=== PATIENT | male | born 1955 | race Caucasian/White ===

== ENCOUNTER 2017-04-12 09:53 | Observation (INO) | payer BC ==
[2017-04-12] MEDS ORDERED: Sodium Chloride 0.9% 10 ML Syringe FLUSH PRN (10:04)
[2017-04-12] MEDS ORDERED: Sodium Chloride 0.9% 1,000 ML IV ONE (10:04)
[2017-04-12] MEDS ORDERED: Diltiazem 25 MG/5 ML SDV IVPUSH ONE ×2 (10:10→10:25)
[2017-04-12] MEDS ORDERED: Diltiazem 25 MG/5 ML SDV ONE (10:12)
--- NOTE | 2017-04-12 10:39 | EDM.PDOC ---
ED HPI GENERAL MEDICAL PROBLEM - General Chief Complaint: Syncope Stated Complaint: SYNCOPE Time Seen by Provider: 04/12/17 10:03 Source of Information: Reports: Patient History Limitations: Reports: No Limitations - History of Present Illness INITIAL COMMENTS - FREE TEXT/NARRATIVE: The patient is a 61-year-old male with a chief complaint of lightheadedness. The patient states that while he was driving yesterday he had a period where he felt lightheaded and pulled over. He ate something and his symptoms resolved. Today since early this morning he's been feeling very lightheaded. Feels like he might pass out. He has not passed out. Denies headache. No chest pain. Mild shortness of breath. No cough. Denies recent illness. No abdominal pain, vomiting, diarrhea. No lower extremity pain or swelling. No additional complaint other than this feeling of lightheadedness. There was no clear provoking factor. He's never had symptoms like this before. - Related Data Allergies Allergy/AdvReac Type Severity Reaction Status Date / Time No Known Allergies Allergy Verified 04/12/17 10:23 Home Meds: Home Meds Levothyroxine Sodium [Levothyroxine Sodium] 112 mg PO DAILY 04/12/17 [History] ED ROS GENERAL - Review of Systems Review Of Systems: See Below Constitutional: Reports: Weakness, Fatigue HEENT: Reports: No Symptoms Respiratory: Reports: Shortness of Breath. Denies: Cough Cardiovascular: Reports: Lightheadedness. Denies: Chest Pain Endocrine: Reports: No Symptoms GI/Abdominal: Denies: Abdominal Pain, Nausea, Vomiting : Reports: No Symptoms Musculoskeletal: Reports: No Symptoms. Denies: Leg Pain Skin: Reports: No Symptoms Neurological: Reports: No Symptoms Psychiatric: Reports: No Symptoms ED EXAM, GENERAL - Physical Exam Exam: See Below Exam Limited By: No Limitations General Appearance: Alert, WD/WN, No Apparent Distress Eye Exam: Bilateral Eye: Normal Inspection Ears: Normal External Exam Nose: Normal Inspection Throat/Mouth: Normal Inspection, Normal Voice, No Airway Compromise Head: Atraumatic, Normocephalic Neck: Normal Inspection, Supple, Non-Tender, Full Range of Motion Respiratory/Chest: No Respiratory Distress, Lungs Clear, Normal Breath Sounds, No Accessory Muscle Use Cardiovascular: No Murmur, Tachycardia, Irregularly Irregular. No: No Edema GI/Abdominal: Soft, Non-Tender, No Distention. No: Rebound Back Exam: Normal Inspection Extremities: Normal Inspection, No Pedal Edema. No: Leg Pain Neurological: Alert, Oriented, Normal Cognition, No Motor/Sensory Deficits Psychiatric: Normal Affect, Normal Mood Skin Exam: Warm, Dry, Intact, Normal Color, No Rash Course - Vital Signs Last Recorded V/S: Last Vital Signs Temp Pulse 79 04/12/17 13:00 Resp 16 04/12/17 13:00 BP 127/97 H 04/12/17 13:00 Pulse Ox 99 04/12/17 15:31 - Orders/Labs/Meds Orders: Active Orders 24 hr Category Date Time Status Peripheral IV Care [RC] . DIRECTED Care 04/12/17 10:04 Active Diltiazem 125 mg Med 04/12/17 11:05 Active Dextrose 5% in Water 100 ml IV TITRATE Sodium Chloride 0.9% [Saline Flush] Med 04/12/17 10:04 Active 10 ml FLUSH ASDIRECTED PRN Peripheral IV Insertion Adult [OM.PC] Routine Oth 04/12/17 10:04 Ordered Medication Orders Acetaminophen (Tylenol) 650 mg PO Q4H PRN PRN Reason: Pain (Mild 1-3)/fever Hydrocodone Bitart/Acetaminophen (Sidman 325-5 Mg) 1 tab PO Q4H PRN PRN Reason: Pain (moderate 4-6) Albuterol/Ipratropium (Duoneb 3.0-0.5 Mg/3 Ml) 3 ml NEB Q4H PRN PRN Reason: Shortness Of Breath/wheezing Bisacodyl (Dulcolax) 5 mg PO DAILY PRN PRN Reason: Constipation Docusate Sodium (Colace) 100 mg PO BID PRN PRN Reason: Constipation Hydromorphone HCl (Dilaudid) 0.25 mg IVPUSH Q2H PRN PRN Reason: Pain (severe 7-10) Diltiazem HCl 125 mg/ Dextrose (/Water) 125 mls @ 5 mls/hr IV TITRATE ANURADHA; 5 MG /HR PRN Reason: Protocol Promethazine HCl 12.5 mg/ (Sodium Chloride) 50.5 mls @ 100 mls/hr IV Q6H PRN PRN Reason: Nausea/Vomiting Levothyroxine Sodium (Levothyroxine) 112 mcg PO DAILY@0700 ANURADHA Lorazepam (Ativan) 1 mg IV Q6H PRN PRN Reason: Anxiety Ondansetron HCl (Zofran) 4 mg IV Q6H PRN PRN Reason: Nausea/Vomiting Polyethylene Glycol (Miralax) 17 gm PO DAILY PRN PRN Reason: Constipation Senna/Docusate Sodium (Senna Plus) 1 tab PO BID PRN PRN Reason: Constipation Sodium Chloride (Saline Flush) 10 ml FLUSH ASDIRECTED PRN PRN Reason: Keep Vein Open Last Admin: 04/12/17 10:34 Dose: 10 ml Temazepam (Restoril) 15 mg PO BEDTIME PRN PRN Reason: Sleep Labs: Laboratory Tests 04/12/17 04/12/17 04/12/17 Range/Units 10:20 10:20 10:20 WBC 13.82 H (4.23-9.07) K/mm3 RBC 5.07 (4.63-6.08) M/mm3 Hgb 16.1 (13.7-17.5) gm/L Hct 47.1 (40.1-51.0) % MCV 92.9 H (79.0-92.2) fl MCH 31.8 (25.7-32.2) pg MCHC 34.2 (32.2-35.5) g/dl RDW Std Deviation 45.0 H (35.1-43.9) fL Plt Count 145 L (163-337) K/mm3 MPV 11.1 (9.4-12.3) fl Neut % (Auto) 76.8 H (34.0-67.9) % Lymph % (Auto) 12.2 L (21.8-53.1) % Avery % (Auto) 9.8 (5.3-12.2) % Eos % (Auto) 0.5 L (0.8-7.0) Baso % (Auto) 0.5 (0.1-1.2) % Neut # (Auto) 10.61 H (1.78-5.38) K/mm3 Lymph # (Auto) 1.68 (1.32-3.57) K/mm3 Avery # (Auto) 1.36 H (0.30-0.82) K/mm3 Eos # (Auto) 0.07 (0.04-0.54) K/mm3 Baso # (Auto) 0.07 (0.01-0.08) K/mm3 Sodium 139 (136-145) mEq/L Potassium 3.6 (3.5-5.1) mEq/L Chloride 106 (98-107) mEq/L Carbon Dioxide 22 (21-32) mEq/L Anion Gap 14.6 (5-15) BUN 12 (7-18) mg/dL Creatinine 1.3 (0.7-1.3) mg/dL Est Cr Clr Drug Dosing 59.19 mL/min Estimated GFR (MDRD) 57 (>60) mL/min BUN/Creatinine Ratio 9.2 L (14-18) Glucose 123 H (74-106) mg/dL Calcium 8.8 (8.5-10.1) mg/dL Magnesium 1.7 L (1.8-2.4) mg/dl Total Bilirubin 1.1 H (0.2-1.0) mg/dL AST 18 (15-37) U/L ALT 27 (16-63) U/L Alkaline Phosphatase 61 (46-116) U/L Troponin I < 0.017 (0.00-0.056) ng/mL B-Natriuretic Peptide 52 (0-100) pg/mL Total Protein 7.0 (6.4-8.2) g/dl Albumin 3.9 (3.4-5.0) g/dl Globulin 3.1 gm/dL Albumin/Globulin Ratio 1.3 (1-2) Free T4 (0.76-1.46) ng/dL TSH 3rd Generation (0.358-3.74) uIU/mL Urine Color (Yellow) Urine Appearance (Clear) Urine pH (5.0-8.0) Ur Specific Richardson (1.005-1.030) Urine Protein (Negative) Urine Glucose (UA) (Negative) Urine Ketones (Negative) Urine Occult Blood (Negative) Urine Nitrite (Negative) Urine Bilirubin (Negative) Urine Urobilinogen (0.2-1.0) Ur Leukocyte Esterase (Negative) Urine RBC (0-5) /hpf Urine WBC (0-5) /hpf Ur Epithelial Cells (0-5) /hpf Urine Bacteria (FEW) /hpf Urine Mucus (FEW) /hpf 04/12/17 04/12/17 Range/Units 10:20 11:07 WBC (4.23-9.07) K/mm3 RBC (4.63-6.08) M/mm3 Hgb (13.7-17.5) gm/L Hct (40.1-51.0) % MCV (79.0-92.2) fl MCH (25.7-32.2) pg MCHC (32.2-35.5) g/dl RDW Std Deviation (35.1-43.9) fL Plt Count (163-337) K/mm3 MPV (9.4-12.3) fl Neut % (Auto) (34.0-67.9) % Lymph % (Auto) (21.8-53.1) % Avery % (Auto) (5.3-12.2) % Eos % (Auto) (0.8-7.0) Baso % (Auto) (0.1-1.2) % Neut # (Auto) (1.78-5.38) K/mm3 Lymph # (Auto) (1.32-3.57) K/mm3 Avery # (Auto) (0.30-0.82) K/mm3 Eos # (Auto) (0.04-0.54) K/mm3 Baso # (Auto) (0.01-0.08) K/mm3 Sodium (136-145) mEq/L Potassium (3.5-5.1) mEq/L Chloride (98-107) mEq/L Carbon Dioxide (21-32) mEq/L Anion Gap (5-15) BUN (7-18) mg/dL Creatinine (0.7-1.3) mg/dL Est Cr Clr Drug Dosing mL/min Estimated GFR (MDRD) (>60) mL/min BUN/Creatinine Ratio (14-18) Glucose (74-106) mg/dL Calcium (8.5-10.1) mg/dL Magnesium (1.8-2.4) mg/dl Total Bilirubin (0.2-1.0) mg/dL AST (15-37) U/L ALT (16-63) U/L Alkaline Phosphatase (46-116) U/L Troponin I (0.00-0.056) ng/mL B-Natriuretic Peptide (0-100) pg/mL Total Protein (6.4-8.2) g/dl Albumin (3.4-5.0) g/dl Globulin gm/dL Albumin/Globulin Ratio (1-2) Free T4 1.40 (0.76-1.46) ng/dL TSH 3rd Generation 0.511 (0.358-3.74) uIU/mL Urine Color Yellow (Yellow) Urine Appearance Clear (Clear) Urine pH 7.0 (5.0-8.0) Ur Specific Richardson 1.015 (1.005-1.030) Urine Protein Negative (Negative) Urine Glucose (UA) Negative (Negative) Urine Ketones Negative (Negative) Urine Occult Blood Negative (Negative) Urine Nitrite Negative (Negative) Urine Bilirubin Negative (Negative) Urine Urobilinogen 0.2 (0.2-1.0) Ur Leukocyte Esterase Negative (Negative) Urine RBC Not seen (0-5) /hpf Urine WBC 0-5 (0-5) /hpf Ur Epithelial Cells Not seen (0-5) /hpf Urine Bacteria Not seen (FEW) /hpf Urine Mucus Not seen (FEW) /hpf Meds: Medications Generic Name Dose Route Start Last Admin Trade Name Freq PRN Reason Stop Dose Admin Acetaminophen 650 mg 04/12/17 13:49 Tylenol PO Q4H PRN Pain (Mild 1-3)/fever Hydrocodone Bitart/Acetaminophen 1 tab 04/12/17 13:49 Sidman 325-5 Mg PO Q4H PRN Pain (moderate 4-6) Albuterol/Ipratropium 3 ml 04/12/17 13:49 Duoneb 3.0-0.5 Mg/3 Ml NEB Q4H PRN Shortness Of Breath/wheezing Bisacodyl 5 mg 04/12/17 13:49 Dulcolax PO DAILY PRN Constipation Docusate Sodium 100 mg 04/12/17 13:49 Colace PO BID PRN Constipation Hydromorphone HCl 0.25 mg 04/12/17 13:49 Dilaudid IVPUSH Q2H PRN Pain (severe 7-10) Diltiazem HCl 125 mg/ Dextrose 125 mls @ 5 mls/hr 04/12/17 11:05 /Water IV TITRATE ANURADHA Protocol 5 MG/HR Promethazine HCl 12.5 mg/ 50.5 mls @ 100 mls/hr 04/12/17 13:49 Sodium Chloride IV Q6H PRN Nausea/Vomiting Levothyroxine Sodium 112 mcg 04/13/17 07:00 Levothyroxine PO DAILY@0700 ANURADHA Lorazepam 1 mg 04/12/17 13:49 Ativan IV Q6H PRN Anxiety Ondansetron HCl 4 mg 04/12/17 13:49 Zofran IV Q6H PRN Nausea/Vomiting Polyethylene Glycol 17 gm 04/12/17 13:49 Miralax PO DAILY PRN Constipation Senna/Docusate Sodium 1 tab 04/12/17 13:49 Senna Plus PO BID PRN Constipation Sodium Chloride 10 ml 04/12/17 10:04 04/12/17 10:34 Saline Flush FLUSH 10 ml ASDIRECTED PRN Administration Keep Vein Open Temazepam 15 mg 04/12/17 13:49 Restoril PO BEDTIME PRN Sleep Discontinued Medications Generic Name Dose Route Start Last Admin Trade Name Freq PRN Reason Stop Dose Admin Diltiazem HCl Confirm 04/12/17 10:12 04/12/17 10:25 Diltiazem Administered 04/12/17 10:13 Not Given Dose 25 mg .ROUTE .STK-MED ONE Diltiazem HCl 10 mg 04/12/17 10:10 04/12/17 10:15 Diltiazem IVPUSH 04/12/17 10:11 10 mg ONETIME ONE Administration Diltiazem HCl 10 mg 04/12/17 10:25 04/12/17 10:27 Diltiazem IVPUSH 04/12/17 10:26 10 mg ONETIME ONE Administration Sodium Chloride 1,000 mls @ 1,000 mls/hr 04/12/17 10:04 04/12/17 10:13 Normal Saline IV 04/12/17 11:03 1,000 mls/hr ONETIME ONE Administration Magnesium Sulfate/Dextrose 1 100 mls @ 100 mls/hr 04/12/17 10:52 04/12/17 11: 40 gm/ Premix IV 04/12/17 11:51 100 mls/hr ONETIME ONE Administration Diltiazem HCl 125 mg/ Sodium 125 mls @ 5 mls/hr 04/12/17 11:00 Chloride IV TITRATE ANURADHA Protocol 5 MG/HR Potassium Chloride 20 meq 04/12/17 11:30 04/12/17 11:35 Potassium Chloride Solution PO 04/12/17 11:31 20 meq ONETIME ONE Administration - Re-Assessments/Exams Free Text/Narrative Re-Assessment/Exam: 04/12/17 11:33 When patient first arrived, his heart rate was very fast, in the 160s and irregular. His EKG showed atrial fibrillation with rapid ventricular response. There is no evidence of acute ischemia. The patient was given IV diltiazem 10 mg with no response. He was given an additional 10 mg of diltiazem. About half an hour later, he converted to normal sinus rhythm. Since then he's had sinus rhythm with a rate in the 60s. EKG shows normal sinus rhythm with no evidence of acute ischemia or arrhythmia. His blood pressures have been on the low side but okay. He is getting some IV fluids now. This is apparently a new diagnosis. He states that he does have a family member, his father who has A. fib. No provoking factor. His magnesium is mildly low. This is being replaced. His potassium is also only 3.6, so we'll give him 20 mEq by mouth. Message left for Dr. Smith at 11:37. Discussed with Dr. Smith at 12:00, he accepts patient for admission. 04/12/17 15:46 Departure - Departure Time of Disposition: 12:00 Disposition: Admitted As Inpatient 68 Clinical Impression: Atrial fibrillation with rapid ventricular response Critical Care Note - Critical Care Note Total Time (mins): 30 - My Orders Last 24 Hours: My Active Orders 04/12/17 10:04 Peripheral IV Care [RC] . DIRECTED Sodium Chloride 0.9% [Saline Flush] 10 ml FLUSH ASDIRECTED PRN Peripheral IV Insertion Adult [OM.PC] Routine 04/12/17 11:05 Diltiazem 125 mg Dextrose 5% in Water 100 ml IV TITRATE - Assessment/Plan Last 24 Hours: My Active Orders 04/12/17 10:04 Peripheral IV Care [RC] . DIRECTED Sodium Chloride 0.9% [Saline Flush] 10 ml FLUSH ASDIRECTED PRN Peripheral IV Insertion Adult [OM.PC] Routine 04/12/17 11:05 Diltiazem 125 mg Dextrose 5% in Water 100 ml IV TITRATE
[2017-04-12] MEDS ORDERED: Diltiazem 125 MG in Sodium Chloride 0.9% 100 ML IV SCH (11:00)
[2017-04-12] MEDS ORDERED: Potassium Chloride 10% 20 MEQ/15 ML Soln 30 ML UD Cup PO ONE (11:12)
--- NOTE | 2017-04-12 11:20 | CR ---
Chest: Frontal view of the chest is obtained. Comparison: No previous study. Small nodule is noted within the right upper chest. Uncertain if this is calcified or not. Chest CT will be recommended to further evaluate. Lungs shows minimal density within both bases presumably due to atelectasis or slight scarring. Lungs otherwise are clear. Heart size and mediastinum are normal. Bony structures are unremarkable. Impression: 1. Nodule within the right upper chest. Noncontrast chest CT is recommended to further evaluate. 2. Mild atelectasis or scarring within both lung bases. Nothing acute is otherwise seen. Diagnostic code #9
[2017-04-12] MEDS ORDERED: Potassium Chloride 10% 20 MEQ/15 ML Soln 15 ML UD Cup PO ONE (11:30)
--- NOTE | 2017-04-12 13:32 | PCM.HP ---
<Margret Ty - Last Filed: 04/12/17 14:27> H&P History of Present Illness - General Date of Service: 04/12/17 Admit Problem/Dx: Admission Diagnosis/Problem Admission Diagnosis/Problem Atrial fibrillation Source of Information: Patient, Provider, RN Notes Reviewed History Limitations: Reports: No Limitations - History of Present Illness Initial Comments - Free Text/Narative: 61 year old white male with history of hypothyroidism, TB-latent diagnosed in 1980, and Stevens's palsy who presented to ED with c/o lightheadedness, fatigue, and syncope. Symptoms began yesterday while driving, he pulled over and had a snack and the symptoms resolved. He had minor lightheadedness this morning in the shower that resolved, then reoccured this afternoon as he neared [facility]. He is travelling from his home in [place], [place] to [place], [place] to visit family and decided to seek medical care. Initial workup in ER revealed Atrial fibrillation with RVR in 160s, hypomagnesmia. WBC elevated at 13.82, Troponin was negative, chest xray with mild atelectasis/scarring to bilateral bases and nodule to right upper chest correlated by non-contrast CT scan as a granuloma. Pt being admitted for observation with telemetry and work-up of syncope. Onset of Symptoms: Reports: Sudden Duration of Symptoms: Reports: Intermittent Associated Symptoms: Reports: Shortness of Breath - Related Data Allergies/Adverse Reactions: Allergies Allergy/AdvReac Type Severity Reaction Status Date / Time No Known Allergies Allergy Verified 04/12/17 10:23 Home Medications: Home Meds Levothyroxine Sodium [Levothyroxine Sodium] 112 mg PO DAILY 04/12/17 [History] Past Medical History HEENT History: Reports: Impaired Vision Cardiovascular History: Reports: High Cholesterol (not on medication-diet controlled) Respiratory History: Reports: TB (latent-diagnosed in 1980) Other Respiratory History: TB in Gastrointestinal History: Reports: GERD (now resolved with weight loss) Genitourinary History: Reports: Renal Calculus Other Neuro History: Stevens's Palsy Endocrine/Metabolic History: Reports: Hypothyroidism - Past Surgical History GI Surgical History: Reports: Appendectomy Social & Family History - Family History Family Medical History: Noncontributory - Tobacco Use Smoking Status *Q: Current Every Day Smoker Years of Tobacco use: 40 Packs/Tins Daily: 0.2 Tobacco Use Comment: Hx of heavy smoking 1-2 ppd at times - Caffeine Use Caffeine Use: Reports: Soda (1 can of soda/day) Other Caffeine Use: daily - Recreational Drug Use Recreational Drug Use: Yes Drug Use in Last 12 Months: Yes Recreational Drug Type: Reports: Marijuana/Hashish (medicinal use-Stevens's palsy) Other Recreational Drug Type: Used last night - has medical license in [place] H&P Review of Systems - Review of Systems: Review Of Systems: See Below General: Reports: No Symptoms HEENT: Reports: No Symptoms Pulmonary: Reports: No Symptoms. Denies: Shortness of Breath, Cough Cardiovascular: Reports: No Symptoms. Denies: Chest Pain, Palpitations, Syncope Gastrointestinal: Reports: No Symptoms Genitourinary: Reports: No Symptoms. Denies: Dysuria, Flank Pain Musculoskeletal: Reports: No Symptoms Skin: Reports: No Symptoms Psychiatric: Reports: No Symptoms Neurological: Reports: No Symptoms. Denies: Dizziness, Weakness Hematologic/Lymphatic: Reports: No Symptoms Immunologic: Reports: No Symptoms Exam - Exam Exam: See Below - Vital Signs Vital Signs: Last Vital Signs Temp Pulse 79 04/12/17 13:00 Resp 16 04/12/17 13:00 BP 127/97 H 04/12/17 13:00 Pulse Ox 98 04/12/17 13:00 Weight: 81.647 kg - Exam Quality Assessment: DVT Prophylaxis General: Alert, Oriented, 4 HEENT: Conjunctiva Clear, EOMI, Hearing Intact, Mucosa Moist & [place], PERRLA Neck: Supple, Trachea Midline. No: JVD, Thyromegaly Lungs: Clear to Auscultation, Normal Respiratory Effort Cardiovascular: Regular Rate, Regular Rhythm. No: Irregular Rhythm Abdomen: Normal Bowel Sounds, Soft (Male) Exam: Deferred Rectal (Males) Exam: Deferred Back Exam: Normal Inspection, Full Range of Motion, NT Extremities: 3, Normal Inspection, 10 Peripheral Pulses: 2+: Radial (L), Radial (R), Dorsalis Pedis (L), Dorsalis Pedis (R) Skin: Warm, Dry, Intact Neurological: Cranial Nerves Intact, Reflexes Equal Bilateral Neuro Extensive - Mental Status: Alert, Oriented x3, Normal Mood/Affect, Normal Cognition Neuro Extensive - Motor, Sensory, Reflexes: CN II-XII Intact, Normal Gait, Normal Reflexes Psychiatric: Alert, Normal Affect, Normal Mood - Patient Data Result Diagrams: 04/12/17 10:20 04/12/17 10:20 EKG INTERPRETATION Comparison: NA - No Prior EKG *Q Meaningful Use (ADM) - VTE *Q VTE Criteria *Q: - Stroke *Q Stroke Criteria *Q: - AMI *Q AMI Criteria *Q: Problem List Initiated/Reviewed/Updated: Yes Orders Last 24hrs: Active Orders 24 hr Category Date Time Status Code Status [Resuscitation Status] Routine Resus Stat 04/12/17 13:23 Ordered Medication Orders Diltiazem HCl 125 mg/ Dextrose (/Water) 125 mls @ 5 mls/hr IV TITRATE ANURADHA; 5 MG /HR PRN Reason: Protocol Sodium Chloride (Saline Flush) 10 ml FLUSH ASDIRECTED PRN PRN Reason: Keep Vein Open Last Admin: 04/12/17 10:34 Dose: 10 ml Assessment/Plan Comment:: Assessment/Plan: Acute: New onset of atrial fib w/ RVR - Paroxysmal - Risk factors: thyroid problems on medications, nicotine, caffeine - Received low dose Cardizem in ED (10mg IV x 2 doses) - Spontaneously/chemically converted to sinus rhythm - Will check for thyroid panel since he is on thyroid replacement medication Syncope - X1 only - likely secondary to cardiac related to atrial fib - 2D echo to asses cardiac function hypomagnesemia - likely 2/2 inadequate intake - received 1 gram of mag sulfate IV in ED - Will montor X-ray Finding - RU chest nodule/granuloma - history of latent TB - Defer outpatient for any other work up chronic: Hypothyroidism - on levothyroxine - will check thyroid panel Plan: admit OBV w/telemetry activity as tolerated SW/CM for d/c planning <Tawanna Smith T - Last Filed: 04/12/17 17:04> H&P History of Present Illness - General Admit Problem/Dx: Admission Diagnosis/Problem Admission Diagnosis/Problem Atrial fibrillation Exam - Vital Signs Vital Signs: Last Vital Signs Temp Pulse 79 04/12/17 13:00 Resp 16 04/12/17 13:00 BP 127/97 H 04/12/17 13:00 Pulse Ox 99 04/12/17 15:31 - Patient Data Result Diagrams: 04/12/17 10:20 04/12/17 10:20 *Q Meaningful Use (ADM) - VTE *Q VTE Criteria *Q: - Stroke *Q Stroke Criteria *Q: - AMI *Q AMI Criteria *Q: Problem List Initiated/Reviewed/Updated: Yes Orders Last 24hrs: Active Orders 24 hr Category Date Time Status Antiembolic Devices [RC] PER UNIT ROUTINE Care 04/12/17 13:51 Active Cardiac Monitoring [RC] CONTINUOUS Care 04/12/17 13:49 Active EKG Documentation Completion [RC] AM Care 04/13/17 07:00 Active Intake and Output [RC] QSHIFT Care 04/12/17 13:49 Active Oxygen Therapy [RC] PRN Care 04/12/17 13:49 Active RT Aerosol Therapy [RC] .PRN Care 04/12/17 13:51 Active Up ad Mary Carmen [RC] ASDIRECTED Care 04/12/17 13:49 Active VTE/DVT Education [RC] PER UNIT ROUTINE Care 04/12/17 13:49 Active Vital Signs [RC] Q4H Care 04/12/17 13:49 Active Consult to Case Management [CONS] Routine Cons 04/12/17 13:49 Active Consult to Manager Cardiac Cath [CONS] Routine Cons 04/12/17 13:49 Active Regular Diet [DIET] Diet 04/12/17 Breakfast Active BASIC METABOLIC PANEL,BMP [CHEM] AM Lab 04/13/17 05:11 Ordered CBC WITH AUTO DIFF [HEME] AM Lab 04/13/17 05:11 Ordered MAGNESIUM [CHEM] AM Lab 04/13/17 05:11 Ordered Acetaminophen [Tylenol] Med 04/12/17 13:49 Active 650 mg PO Q4H PRN Acetaminophen/HYDROcodone [Steele 325-5 MG] Med 04/12/17 13:49 Active 1 tab PO Q4H PRN Albuterol/Ipratropium [DuoNeb 3.0-0.5 MG/3 ML] Med 04/12/17 13:49 Active 3 ml NEB Q4H PRN Bisacodyl [Dulcolax] Med 04/12/17 13:49 Active 5 mg PO DAILY PRN Docusate Sodium [Colace] Med 04/12/17 13:49 Active 100 mg PO BID PRN Docusate Sodium/Sennosides [Senna Plus] Med 04/12/17 13:49 Active 1 tab PO BID PRN HYDROmorphone [Dilaudid] Med 04/12/17 13:49 Active 0.25 mg IVPUSH Q2H PRN LORazepam [Ativan] Med 04/12/17 13:49 Active 1 mg IV Q6H PRN Levothyroxine Med 04/13/17 07:00 Active 112 mcg PO DAILY@0700 Ondansetron [Zofran] Med 04/12/17 13:49 Active 4 mg IV Q6H PRN Polyethylene Glycol 3350 [MiraLAX] Med 04/12/17 13:49 Active 17 gm PO DAILY PRN Promethazine [Phenergan] 12.5 mg Med 04/12/17 13:49 Active Sodium Chloride 0.9% [Normal Saline] 50 ml IV Q6H Temazepam [Restoril] Med 04/12/17 13:49 Active 15 mg PO BEDTIME PRN Sequential Compression Device [OM.PC] Per Unit Routine Oth 04/12/17 13:50 Ordered Code Status [Resuscitation Status] Routine Resus Stat 04/12/17 13:23 Ordered Medication Orders Acetaminophen (Tylenol) 650 mg PO Q4H PRN PRN Reason: Pain (Mild 1-3)/fever Hydrocodone Bitart/Acetaminophen (Steele 325-5 Mg) 1 tab PO Q4H PRN PRN Reason: Pain (moderate 4-6) Albuterol/Ipratropium (Duoneb 3.0-0.5 Mg/3 Ml) 3 ml NEB Q4H PRN PRN Reason: Shortness Of Breath/wheezing Bisacodyl (Dulcolax) 5 mg PO DAILY PRN PRN Reason: Constipation Docusate Sodium (Colace) 100 mg PO BID PRN PRN Reason: Constipation Hydromorphone HCl (Dilaudid) 0.25 mg IVPUSH Q2H PRN PRN Reason: Pain (severe 7-10) Diltiazem HCl 125 mg/ Dextrose (/Water) 125 mls @ 5 mls/hr IV TITRATE ANURADHA; 5 MG /HR PRN Reason: Protocol Promethazine HCl 12.5 mg/ (Sodium Chloride) 50.5 mls @ 100 mls/hr IV Q6H PRN PRN Reason: Nausea/Vomiting Levothyroxine Sodium (Levothyroxine) 112 mcg PO DAILY@0700 ANURADHA Lorazepam (Ativan) 1 mg IV Q6H PRN PRN Reason: Anxiety Ondansetron HCl (Zofran) 4 mg IV Q6H PRN PRN Reason: Nausea/Vomiting Polyethylene Glycol (Miralax) 17 gm PO DAILY PRN PRN Reason: Constipation Senna/Docusate Sodium (Senna Plus) 1 tab PO BID PRN PRN Reason: Constipation Sodium Chloride (Saline Flush) 10 ml FLUSH ASDIRECTED PRN PRN Reason: Keep Vein Open Last Admin: 04/12/17 10:34 Dose: 10 ml Temazepam (Restoril) 15 mg PO BEDTIME PRN PRN Reason: Sleep Assessment/Plan Comment:: Patient seen and examined at bedside. Assessments and plan were discussed with me by the [employer] student and ORQUIDEA Quintanilla, Supervising Provider. Other Chronic Problems: Hx/o Stevens's Palsy Chronic Medical Marijuana Use
--- NOTE | 2017-04-12 13:35 | CT ---
CT chest Technique: Multiple axial sections were obtained from above the lung apices inferiorly through the lung bases. Intravenous contrast was not utilized. Comparison: Previous chest x-ray of 04/12/17. Findings: Nodule is identified within the right upper lung. This shows calcification as well as a small amount of adjacent scarring. This is felt compatible with incidental granuloma. Lungs otherwise are clear. Mild atherosclerotic calcification is noted within the thoracic aorta. Small normal-appearing lymph nodes are seen within the mediastinum. No adenopathy is identified. No pericardial thickening is seen. Small portions of the upper abdominal structures appears within normal limits. Bone window settings were reviewed which shows no acute abnormality. Impression: 1. Previous chest x-ray nodule correlates to a granuloma within the right upper lung. 2. Other incidental findings. Nothing acute is seen. Diagnostic code #2
[2017-04-12] MEDS ORDERED: Bisacodyl 5 MG Tab PO PRN (13:49)
[2017-04-12] MEDS ORDERED: Promethazine 12.5 MG in Sodium Chloride 0.9% 50 ML IV PRN (13:49)
[2017-04-12] MEDS ORDERED: Docusate Sodium 100 MG Cap PO PRN (13:49)
[2017-04-12] MEDS ORDERED: LORazepam 2 MG/ML MDV IV PRN (13:49)
[2017-04-12] MEDS ORDERED: Acetaminophen 325 MG Tab PO PRN (13:49)
[2017-04-12] MEDS ORDERED: Temazepam 15 MG Cap PO PRN (13:49)
[2017-04-12] MEDS ORDERED: HYDROmorphone 0.5 MG/0.5 ML Syringe IVPUSH PRN (13:49)
[2017-04-12] MEDS ORDERED: Acetaminophen/HYDROcodone 325-5 MG Tab PO PRN (13:49)
[2017-04-12] MEDS ORDERED: Ondansetron 4 MG/2 ML SDV IV PRN (13:49)
[2017-04-12] MEDS ORDERED: Polyethylene Glycol 3350 Powder 17 GM Packet PO PRN (13:49)
[2017-04-12] MEDS ORDERED: Albuterol/Ipratropium 3.0-0.5 MG/3 ML Neb Soln NEB PRN (13:49)
[2017-04-12] MEDS ORDERED: Famotidine 20 MG Tab PO PRN (21:05)
[2017-04-13] MEDS ORDERED: Levothyroxine 112 MCG Tab PO SCH (07:00)
[2017-04-13 08:48] VITALS: BP 120/81
--- NOTE | 2017-04-13 09:17 | PCM.DCSUM1 ---
Discharge Summary - Hospital Course Free Text/Narrative:: 61 year old white male with history of hypothyroidism, TB-latent diagnosed in 1980, and Stevens's palsy who presented to ED with c/o lightheadedness, fatigue, and syncope. Symptoms began yesterday while driving, he pulled over and had a snack and the symptoms resolved. He had minor lightheadedness this morning in the shower that resolved, then reoccured this afternoon as he neared [facility]. He is travelling from his home in [place], [place] to [place], [place] to visit family and decided to seek medical care. Initial workup in ER revealed Atrial fibrillation with RVR in 160s, hypomagnesmia. WBC elevated at 13.82, Troponin was negative, chest xray with mild atelectasis/scarring to bilateral bases and nodule to right upper chest correlated by non-contrast CT scan as a granuloma. Pt being admitted for observation with telemetry and work-up of syncope. He maintained SR overnight on telemetry, repeat EKG morning of discharge was with normal sinus rhythm, rate of 82bpm. He had echocardiogram obtained during his stay with final report of 60-65%, no valvular dysfunction or other concerns. This information/report was not available upon discharge but patient was insistent upon discharge. I did call him today (04/14/17) with the normal results of echocardiogram. He states he is feeling well, no palpitations or symptoms of racing heartbeats. He was discharged home with instructions to follow up/consult with Cardiology for paroxysmal atrial fibrillation. Recommend follow up with PCP within one week of discharge. Reports will be sent/faxed to his PCP Dr. Ashu Torres, phone [phone] at [facility] in [place], [place]; fax number was obtained from office and is [phone]. - Discharge Data Discharge Date: 04/13/17 (admit date 04/12/17) Discharge Disposition: Home, Self-Care 01 Condition: Good - Patient Summary/Data Operative Procedure(s) Performed: None Complications: None Consults: Consultations 04/12/17 13:49 Consult to Case Management [CONS] Routine Consult to Disulfurizer Tender [CONS] Routine Labs Pending at D/C: None Recommended Follow-up Testing/Procedures: Follow up with PCP within one week of discharge Recommend Cardiology consult for paroxysmal atrial fibrillation Planned Operative Procedure(s) after DC: None Hospital Course: As above - Patient Instructions Diet: Heart Healthy Diet Activity: As Tolerated Driving: May Drive Today Showering/Bathing: May Shower Notify Provider of: Fever, Increased Pain, Nausea and/or Vomiting (palpitations , shortness of breath, chest pain) - Discharge Plan Home Medications: Home Meds Levothyroxine Sodium 112 mcg PO DAILY 04/12/17 [History] Patient Handouts: Smoking Cessation, Tips for Success, [id number], Atrial Fibrillation, [id number] Forms: ED Department Discharge Referrals: PCP,Not In Area [Primary Care Provider] - - Discharge Summary/Plan Comment DC Time >30 min.: Yes (40 min) - General Info Date of Service: 04/13/17 Admission Dx/Problem (Free Text: Admission Diagnosis/Problem Admission Diagnosis/Problem Atrial fibrillation Doing well overnight; no further afib noted on tele overnight. Repeat EKG this morning with NSR. Functional Status: Reports: pain controlled, tolerating diet, ambulating, urinating - Review of Systems General: Reports: No Symptoms HEENT: Reports: no symptoms Pulmonary: Reports: no symptoms Cardiovascular: Reports: No Symptoms Gastrointestinal: Reports: No symptoms Genitourinary: Reports: no symptoms Musculoskeletal: Reports: no symptoms Skin: Reports: no symptoms Neurological: Reports: No Symptoms Psychiatric: Reports: no symptoms - Patient Data Vitals - Most Recent: Last Vital Signs Temp 98.2 F 04/13/17 08:39 Pulse 61 04/13/17 08:39 Resp 16 04/13/17 08:39 BP 120/81 04/13/17 08:39 Pulse Ox 97 04/13/17 08:39 Weight - Most Recent: 182 lb 9.6 oz I&O - Last 24 hours: Intake & Output 04/12/17 04/13/17 04/13/17 22:59 06:59 14:59 Intake Total 200 800 Output Total 600 Balance 200 200 Lab Results - Last 24 hrs: Laboratory Results - last 24 hr 04/13/17 04/13/17 Range/Units 05:49 05:49 WBC 7.08 (4.23-9.07) K/mm3 RBC 4.59 L (4.63-6.08) M/mm3 Hgb 14.7 (13.7-17.5) gm/L Hct 43.8 (40.1-51.0) % MCV 95.4 H (79.0-92.2) fl MCH 32.0 (25.7-32.2) pg MCHC 33.6 (32.2-35.5) g/dl RDW Std Deviation 47.2 H (35.1-43.9) fL Plt Count 126 L (163-337) K/mm3 MPV 10.9 (9.4-12.3) fl Neut % (Auto) 60.2 (34.0-67.9) % Lymph % (Auto) 25.8 (21.8-53.1) % [place] % (Auto) 10.3 (5.3-12.2) % Eos % (Auto) 2.8 (0.8-7.0) Baso % (Auto) 0.8 (0.1-1.2) % Neut # (Auto) 4.25 (1.78-5.38) K/mm3 Lymph # (Auto) 1.83 (1.32-3.57) K/mm3 [place] # (Auto) 0.73 (0.30-0.82) K/mm3 Eos # (Auto) 0.20 (0.04-0.54) K/mm3 Baso # (Auto) 0.06 (0.01-0.08) K/mm3 Sodium 140 (136-145) mEq/L Potassium 4.5 (3.5-5.1) mEq/L Chloride 107 (98-107) mEq/L Carbon Dioxide 26 (21-32) mEq/L Anion Gap 11.5 (5-15) BUN 11 (7-18) mg/dL Creatinine 1.2 (0.7-1.3) mg/dL Est Cr Clr Drug Dosing 64.13 mL/min Estimated GFR (MDRD) > 60 (>60) mL/min BUN/Creatinine Ratio 9.2 L (14-18) Glucose 99 (74-106) mg/dL Calcium 8.1 L (8.5-10.1) mg/dL Magnesium 2.0 (1.8-2.4) mg/dl Med Orders - Current: Current Medications Acetaminophen (Tylenol) 650 mg PO Q4H PRN PRN Reason: Pain (Mild 1-3)/fever Hydrocodone Bitart/Acetaminophen ([place] 325-5 Mg) 1 tab PO Q4H PRN PRN Reason: Pain (moderate 4-6) Albuterol/Ipratropium (Duoneb 3.0-0.5 Mg/3 Ml) 3 ml NEB Q4H PRN PRN Reason: Shortness Of Breath/wheezing Bisacodyl (Dulcolax) 5 mg PO DAILY PRN PRN Reason: Constipation Docusate Sodium (Colace) 100 mg PO BID PRN PRN Reason: Constipation Famotidine (Pepcid) 40 mg PO BID PRN PRN Reason: Heartburn Last Admin: 04/12/17 21:27 Dose: 40 mg Hydromorphone HCl (Dilaudid) 0.25 mg IVPUSH Q2H PRN PRN Reason: Pain (severe 7-10) Promethazine HCl 12.5 mg/ (Sodium Chloride) 50.5 mls @ 100 mls/hr IV Q6H PRN PRN Reason: Nausea/Vomiting Levothyroxine Sodium (Levothyroxine) 112 mcg PO DAILY@0700 ANURADHA Last Admin: 04/13/17 06:41 Dose: 112 mcg Lorazepam (Ativan) 1 mg IV Q6H PRN PRN Reason: Anxiety Last Admin: 04/12/17 21:28 Dose: 1 mg Ondansetron HCl (Zofran) 4 mg IV Q6H PRN PRN Reason: Nausea/Vomiting Polyethylene Glycol (Miralax) 17 gm PO DAILY PRN PRN Reason: Constipation Senna/Docusate Sodium (Senna Plus) 1 tab PO BID PRN PRN Reason: Constipation Sodium Chloride (Saline Flush) 10 ml FLUSH ASDIRECTED PRN PRN Reason: Keep Vein Open Last Admin: 04/12/17 10:34 Dose: 10 ml Temazepam (Restoril) 15 mg PO BEDTIME PRN PRN Reason: Sleep Discontinued Medications Diltiazem HCl (Diltiazem) Confirm Administered Dose 25 mg .ROUTE .STK-MED ONE Stop: 04/12/17 10:13 Last Admin: 04/12/17 10:25 Dose: Not Given Diltiazem HCl (Diltiazem) 10 mg IVPUSH ONETIME ONE Stop: 04/12/17 10:11 Last Admin: 04/12/17 10:15 Dose: 10 mg Diltiazem HCl (Diltiazem) 10 mg IVPUSH ONETIME ONE Stop: 04/12/17 10:26 Last Admin: 04/12/17 10:27 Dose: 10 mg Sodium Chloride (Normal Saline) 1,000 mls @ 1,000 mls/hr IV ONETIME ONE Stop: 04/12/17 11:03 Last Admin: 04/12/17 10:13 Dose: 1,000 mls/hr Magnesium Sulfate/Dextrose 1 (gm/ Premix) 100 mls @ 100 mls/hr IV ONETIME ONE Stop: 04/12/17 11:51 Last Admin: 04/12/17 11:40 Dose: 100 mls/hr Diltiazem HCl 125 mg/ Sodium (Chloride) 125 mls @ 5 mls/hr IV TITRATE ANURADHA; 5 MG /HR PRN Reason: Protocol Diltiazem HCl 125 mg/ Dextrose (/Water) 125 mls @ 5 mls/hr IV TITRATE ANURADHA; 5 MG /HR PRN Reason: Protocol Potassium Chloride (Potassium Chloride Solution) 20 meq PO ONETIME ONE Stop: 04/12/17 11:31 Last Admin: 04/12/17 11:35 Dose: 20 meq - Exam Quality Assessment: Reports: DVT prophylaxis General: Reports: alert, oriented, cooperative, no acute distress HEENT: Reports: Pupils equal, Pupils reactive, EOMI, Mucous membr. moist/pink Neck: Reports: supple Lungs: Reports: Clear to auscultation, Normal respiratory effort Cardiovascular: Reports: Regular Rate, Regular Rhythm, No Murmurs Abdomen: Reports: bowel sounds present, soft, no tenderness, no distension (Male) Exam: Deferred Rectal (Males) Exam: Deferred Extremities: Reports: no edema Neurological: Reports: no new focal deficit Psy/Mental Status: Reports: alert, normal affect, normal mood *Q Meaningful Use (DIS) - VTE *Q VTE Criteria *Q: - Stroke *Q Stroke Criteria *Q: - AMI *Q AMI Criteria *Q:
== END 2017-04-13 10:50 | disposition home or self-care (01) ==
LOC: JD.ED 09:53 → JD.MS 12:57
PROVIDERS: ADMIT Internal Medicine; ATTEND Internal Medicine
DX: I48.91 Unspecified atrial fibrillation (principal); E83.42 Hypomagnesemia; E78.00 Pure hypercholesterolemia, unspecified; K21.9 Gastro-esophageal reflux disease without esophagitis; N20.0 Calculus of kidney; G51.0 Bell's palsy; F17.210 Nicotine dependence, cigarettes, uncomplicated; Z90.49 Acquired absence of other specified parts of digestive tract; Z86.11 Personal history of tuberculosis
CPT/HCPCS: 36415; 71010; 71250; 80048; 80053; 81001; 83735; 83880; 84439; 84443; 84484; 85025; 93005; 93306; 94760; 96361; 96365; 96375; 99285; A9270; G0378; J2060; J3475; J7040; J7050; 99284; J3490